=== PATIENT | female | born 1975 | race American Indian/Alaskan Native ===

== ENCOUNTER 2018-04-08 13:16 | Outpatient (CLI) | payer MEDICAID ==
[2018-04-08 13:59] LABS: Basophils % (Auto) 0.3 % (0.0-1.8); Eosinophils # (Auto) 0.1 K/mm3 (0.0-0.4); Eosinophils % (Auto) 1.2 % (0.0-4.3); Hematocrit 34.1 % (30.3-42.9); Hemoglobin 11.3 gm/dl (10.1-14.3); Lymphocytes # (Auto) 1.6 K/mm3 (1.2-5.4); Lymphocytes % (Auto) 13.3 % (13.4-35.0); Mean Corpuscular HGB Conc 33 % (30-34); Mean Corpuscular Volume 86 fl (79-97); Monocytes # (Auto) 0.9 K/mm3 (0.0-0.8); Monocytes % (Auto) 7.3 % (0.0-7.3); Platelet Count 326 K/mm3 (140-440); Red Blood Count 3.98 M/mm3 (3.65-5.03); Red Cell Distribution Width 14.7 % (13.2-15.2)
[2018-04-08 14:06] LABS: Bacteria,Urine 2+ /HPF (Negative); Bilirubin,Urine NEG (Negative); Blood,Urine NEG (Negative); Color,Urine Yellow (Yellow); Mucus,Urine 1+ /HPF; Protein,Urine <15 mg/dL mg/dL (Negative); Urobilinogen,Urine < 2.0 mg/dL (<2.0)
[2018-04-08 14:19] LABS: Alanine Aminotransferase 5 units/L (7-56); Albumin 3.1 g/dL (3.9-5); BUN/Creatinine Ratio 18; Blood Urea Nitrogen 7 mg/dL (7-17); Calcium 8.3 mg/dL (8.4-10.2); Hemolysis Index 6
--- NOTE | 2018-04-08 16:23 | Ultrasound Report ---
FINAL REPORT EXAM: US OB BPP WO NON-STRESS HISTORY: well being, mayito, and posistion COMPARISON: Biophysical profile performed on 04/02/2018 TECHNIQUE: Limited obstetric ultrasound was performed for biophysical profile score. FINDINGS: heart rate is 149 beats per minute. Biophysical profile score: breathing movement: 2 movement: 2 posterior and tone: 2 Qualitative amniotic fluid volume: 2 Total score: 8 IMPRESSION: Normal biophysical profile score of 8.
--- NOTE | 2018-04-08 16:25 | Ultrasound Report ---
FINAL REPORT EXAM: US OB LIMITED HISTORY: well being, bpp, mayito, presentation COMPARISON: Amniotic fluid index performed on 04/02/2018 TECHNIQUE: Limited obstetrical ultrasound for amniotic fluid index was performed. FINDINGS: There is a single live intrauterine in cephalic presentation. heart rate is 143 beats per minute. Amniotic fluid index is 16.5 centimeters. IMPRESSION: Amniotic fluid index of 16.5 centimeters.
== END 2018-04-08 16:58 | disposition home or self-care (01) ==
LOC: TRG 13:16
PROVIDERS: ATTEND Obstetrics & Gynecology
DX: O47.1 False labor at or after 37 completed weeks of gestation (principal); O10.013 Pre-existing essential hypertension complicating pregnancy, third trimester; Z3A.38 38 weeks gestation of pregnancy
CPT/HCPCS: 36415; 59025; 76815; 76819; 80053; 81001; 85025

== ENCOUNTER 2018-04-12 11:30 | Inpatient (IN) | payer MEDICAID ==
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
[2018-04-13] MEDS ORDERED: STADOL IV PRN (01:06)
[2018-04-13] MEDS ORDERED: PHENERGAN PO PRN (01:06)
[2018-04-13] MEDS ORDERED: MINERAL OIL PO PRN (01:06)
[2018-04-13] MEDS ORDERED: BRETHINE SUB-Q PRN (01:06)
[2018-04-13] MEDS ORDERED: XYLOCAINE 2% INFILTRATI ONE (01:06)
[2018-04-13] MEDS ORDERED: BRETHINE IVP PRN (01:06)
[2018-04-13] MEDS ORDERED: PITOCin/NS 20 UNIT/1000ML DRIP 20 UNITS/1,000 ML BAG IV SCH (02:00)
[2018-04-13 03:42] LABS: Hematocrit 34.4 % (30.3-42.9); Hemoglobin 11.2 gm/dl (10.1-14.3); Mean Corpuscular HGB Conc 33 % (30-34); Mean Corpuscular Volume 87 fl (79-97); Platelet Count 296 K/mm3 (140-440); Red Blood Count 3.96 M/mm3 (3.65-5.03)
[2018-04-13] MEDS ORDERED: PITOCin/NS 30 UNIT/500ML 30,000 MILLIUNITS/500 ML BAG IV ONE ×2 (03:58→04:04)
--- NOTE | 2018-04-13 04:05 | Ultrasound Report ---
FINAL REPORT PROCEDURE: US OB LIMITED TECHNIQUE: Real-time limited sonographic examination was performed for evaluation of size, pos ition, heartbeat, fluid volume for each fetus with image documentation (1 or more fetuses). CPT 7681 5 HISTORY: position COMPARISON: No prior studies are available for comparison. FINDINGS: Fetus is in cephalic presentation. There is a hand at the internal os. Heart rate is 125 beats per minute. IMPRESSION: Fetus is in cephalic presentation. There is a hand at the internal os. Heart rate is 125 beats per minute.
[2018-04-13] MEDS: LACTATED RINGERS 1,000 ML IV SCH ×2 (04:10→12:09)
[2018-04-13 08:14] LABS: Hematocrit 32.6 % (30.3-42.9); Hemoglobin 10.8 gm/dl (10.1-14.3)
--- NOTE | 2018-04-13 08:29 | Progress Note ---
Objective - Vital Signs Vital Signs: Vital Signs - 12hr 04/12/18 04/12/18 04/13/18 21:53 22:40 07:45 Temperature 98.6 F Pulse Rate 100 H 93 H 98 H Respiratory 16 Rate Blood Pressure 104/69 103/57 105/58 Blood Pressure 103/57 [Left] 04/13/18 04/13/18 07:47 08:14 Temperature 97.8 F Pulse Rate 91 H Respiratory 18 Rate Blood Pressure 102/67 Blood Pressure [Left] - Exam FHR: category 1 Cervical Dilatation: 1 Cervical Effacement Percentage: 50 station: -2 - Labs Labs: Abnormal Labs 04/12/18 23:33 WBC 11.5 H Laboratory Results - last 24 hr 04/12/18 04/12/18 04/13/18 23:33 23:33 07:47 WBC 11.5 H RBC 3.96 Hgb 11.2 10.8 Hct 34.4 32.6 MCV 87 MCH 28 MCHC 33 RDW 15.0 Plt Count 296 Blood Type A POSITIVE Antibody Screen Negative
--- NOTE | 2018-04-13 08:29 | Event Note ---
Date: 04/13/18 Pt seen and evaluated. Sono on admission reviewed. Cx at this time is /-2 with head palpated. No hand or arm is palpated on my exam I d/w having breakfast, pericare and proceeding with IOL. She is aware that lie has been unstable and if position changes during labor, this would result in c/s. Pt expressed understanding and questions were addressed and answered. Will having pt sign consent for c/s incase it is needed later due to unstable or change in ile. Sono ordered to compare to physician exam. Head is lower in pelvis than admission also.
--- NOTE | 2018-04-13 09:06 | Ultrasound Report ---
LIMITED OB ULTRASOUND: Presentation. Gestation: Borges Position: Cephalic Heart Rate: 128 BPM Estimated age is 39 weeks 4 days.
--- NOTE | 2018-04-13 10:46 | Event Note ---
Date: 04/13/18 Second sono confirms no hand or arm over head and is c/w my exam. Will start pitocin for IOL at this time.
[2018-04-13] MEDS ORDERED: PNEUMOVAX 23 IM ONE (12:00)
[2018-04-13] MEDS ORDERED: AFLURIA QUAD 2018-2019 SYRINGE IM ONE (12:00)
--- NOTE | 2018-04-13 17:49 | Progress Note ---
Assessment and Plan Patient resting in bed. Reports feeling "some contractions"-pain /10, declines medication or intervention. Contractions q3-5 minutes by palpation, mild, per RN. SVE /50/-2, soft, mid position, vertex. Pitocin currently on 20. Category 1 tracing. Reviewed assessment with Dr. Abad, states she will present to L&D for AROM, continue increasing pitocin as ordered. Patient and FOC as well as ABELARDO Caruso aware of plan. Subjective - Subjective Date of service: 04/13/18 Patient reports: movement normal, no new complaints Objective - Vital Signs Vital Signs: Vital Signs - 12hr 04/13/18 04/13/18 04/13/18 07:45 07:47 08:14 Temperature 97.8 F Pulse Rate 98 H 91 H Respiratory 18 Rate Blood Pressure 105/58 102/67 04/13/18 04/13/18 04/13/18 08:44 09:14 09:44 Temperature Pulse Rate 94 H 96 H 96 H Respiratory Rate Blood Pressure 102/58 105/58 101/57 04/13/18 04/13/18 04/13/18 10:14 10:44 11:15 Temperature Pulse Rate 96 H 99 H 93 H Respiratory Rate Blood Pressure 98/56 101/55 107/63 04/13/18 04/13/18 04/13/18 11:44 12:13 12:44 Temperature 97.4 F L Pulse Rate 99 H 93 H Respiratory 18 Rate Blood Pressure 116/67 102/59 04/13/18 04/13/18 04/13/18 13:14 13:44 14:14 Temperature Pulse Rate 85 93 H 92 H Respiratory Rate Blood Pressure 95/55 118/56 105/61 04/13/18 04/13/18 04/13/18 14:44 15:14 15:44 Temperature Pulse Rate 88 86 89 Respiratory Rate Blood Pressure 108/66 111/60 96/53 04/13/18 04/13/18 04/13/18 16:06 16:14 16:44 Temperature 98.8 F Pulse Rate 93 H 93 H Respiratory 18 Rate Blood Pressure 109/65 109/61 04/13/18 17:14 Temperature Pulse Rate 96 H Respiratory Rate Blood Pressure 111/60 - Exam Abdomen: Present: normal appearance, soft Vulva: both: normal Uterus: Present: normal FHR: category 1 Uterine Contraction Monitor Mode: External Cervical Dilatation: 4 Cervical Effacement Percentage: 50 station: -2 Uterine Contraction Frequency (min): 3-5 by palpation Uterine Contraction Pattern: Regular Uterine Tone Measurement Phase: Contraction Uterine Contraction Intensity: Mild Extremities: normal - Labs Labs: Abnormal Labs 04/12/18 23:33 WBC 11.5 H Laboratory Results - last 24 hr 04/12/18 04/12/18 04/12/18 23:33 23:33 23:33 WBC 11.5 H RBC 3.96 Hgb 11.2 Hct 34.4 MCV 87 MCH 28 MCHC 33 RDW 15.0 Plt Count 296 RPR Nonreactive Blood Type A POSITIVE Antibody Screen Negative 04/13/18 07:47 WBC RBC Hgb 10.8 Hct 32.6 MCV MCH MCHC RDW Plt Count RPR Blood Type Antibody Screen
--- NOTE | 2018-04-13 19:15 | Progress Note ---
Assessment and Plan - Patient Problems (1) Advanced maternal age (AMA), 40 years or greater Current Visit: Yes Status: Chronic (2) 39 weeks gestation of Current Visit: No Status: Acute (3) Active labor at term Current Visit: No Status: Acute Plan to address problem: -anticipate -vtx and head in position. no other parts are presenting -iv pain meds at this time. Subjective - Subjective Date of service: 04/13/18 Principal diagnosis: IUP at term for IOL for unstable lie now in active labor Interval history: doing well desires pain meds. declines epidural. Patient reports: movement normal, no new complaints Objective - Vital Signs Vital Signs: Vital Signs - 12hr 04/13/18 04/13/18 04/13/18 07:45 07:47 08:14 Temperature 97.8 F Pulse Rate 98 H 91 H Respiratory 18 Rate Blood Pressure 105/58 102/67 04/13/18 04/13/18 04/13/18 08:44 09:14 09:44 Temperature Pulse Rate 94 H 96 H 96 H Respiratory Rate Blood Pressure 102/58 105/58 101/57 04/13/18 04/13/18 04/13/18 10:14 10:44 11:15 Temperature Pulse Rate 96 H 99 H 93 H Respiratory Rate Blood Pressure 98/56 101/55 107/63 04/13/18 04/13/18 04/13/18 11:44 12:13 12:44 Temperature 97.4 F L Pulse Rate 99 H 93 H Respiratory 18 Rate Blood Pressure 116/67 102/59 04/13/18 04/13/18 04/13/18 13:14 13:44 14:14 Temperature Pulse Rate 85 93 H 92 H Respiratory Rate Blood Pressure 95/55 118/56 105/61 04/13/18 04/13/18 04/13/18 14:44 15:14 15:44 Temperature Pulse Rate 88 86 89 Respiratory Rate Blood Pressure 108/66 111/60 96/53 04/13/18 04/13/18 04/13/18 16:06 16:14 16:44 Temperature 98.8 F Pulse Rate 93 H 93 H Respiratory 18 Rate Blood Pressure 109/65 109/61 04/13/18 04/13/18 04/13/18 17:14 17:44 18:44 Temperature Pulse Rate 96 H 98 H 93 H Respiratory Rate Blood Pressure 111/60 107/66 113/59 - Exam FHR: category 1 Cervical Dilatation: 6.5 Cervical Effacement Percentage: 70 station: -1 Uterine Contraction Pattern: Regular Uterine Tone Measurement Phase: Resting Uterine Contraction Intensity: Moderate - Labs Labs: Abnormal Labs 04/12/18 23:33 WBC 11.5 H Laboratory Results - last 24 hr 04/12/18 04/12/18 04/12/18 23:33 23:33 23:33 WBC 11.5 H RBC 3.96 Hgb 11.2 Hct 34.4 MCV 87 MCH 28 MCHC 33 RDW 15.0 Plt Count 296 RPR Nonreactive Blood Type A POSITIVE Antibody Screen Negative 04/13/18 07:47 WBC RBC Hgb 10.8 Hct 32.6 MCV MCH MCHC RDW Plt Count RPR Blood Type Antibody Screen
--- NOTE | 2018-04-13 22:22 | Procedure Note ---
Addendum entered and electronically signed by ALDAIR RODRIGUEZ MD 04/15/18 06:32: I was present for the delivery. 2nd degree laceation repaired by myself in usual fashion under local anethesia with 3-0 vicrly. Pt tolerated the procedure well. Original Note: OB Delivery Note - Delivery Date of Delivery: 04/13/18 Statistical Modeler: AMY IVORY Estimated blood loss: 300cc - Vaginal Delivery position: OA Intrapartum events: none Delivery induction: oxytocin Delivery monitor: external FHT, external uterine Route of delivery: Delivery placenta: spontaneous Episiotomy: none Delivery laceration: 2nd degree Delivery repair: vicryl Anesthesia: intravenous - Infant A at 1 minute: 8 at 5 minutes: 9 Infant Gender: Male (6#12)
[2018-04-14] MEDS ORDERED: BENADRYL PO PRN (00:22)
[2018-04-14] MEDS ORDERED: ZOFRAN IV PRN (00:22)
[2018-04-14] MEDS ORDERED: TYLENOL PO PRN (00:22)
[2018-04-14] MEDS ORDERED: MILK OF MAGNESIA PO PRN (00:22)
[2018-04-14] MEDS ORDERED: TUCKS PAD TP PRN (00:22)
[2018-04-14] MEDS ORDERED: PHENERGAN PO PRN (00:22)
[2018-04-14] MEDS ORDERED: DULCOLAX PR PRN (00:22)
[2018-04-14] MEDS ORDERED: LANSINOH TP PRN (00:22)
[2018-04-14] MEDS ORDERED: PITOCin/NS 20 UNIT/1000ML DRIP 20 UNITS/1,000 ML BAG IV SCH (00:22)
[2018-04-14] MEDS ORDERED: SODIUM CHLORIDE FLUSH SYRINGE 10 ML IV NR (00:22)
[2018-04-14] MEDS: IBUPROFEN PO SCH ×5 (00:42→20:08)
[2018-04-14] MEDS ORDERED: BOOSTRIX IM ONE (06:00)
[2018-04-14 10:51] LABS: Hematocrit 32.2 % (30.3-42.9); Hemoglobin 10.8 gm/dl (10.1-14.3)
--- NOTE | 2018-04-14 13:49 | Progress Note ---
Assessment and Plan - Patient Problems (1) Unstable lie of fetus, antepartum Current Visit: Yes Status: Acute Qualifiers: Fetus number: single or unspecified fetus Qualified Code(s): O32.0XX0 - Maternal care for unstable lie, not applicable or unspecified (2) 39 weeks gestation of Current Visit: No Status: Acute (3) Advanced maternal age (AMA), 40 years or greater Current Visit: Yes Status: Chronic (4) Spontaneous vaginal delivery Current Visit: No Status: Acute Plan to address problem: Patient less than 24 hours doing well Subjective - Subjective Principal diagnosis: IUP at term for IOL for unstable lie now in active labor Interval history: day #1. Patient without nausea vomiting. Patient tolerating diet well Patient without fever. Infant is doing well. Will continue routine care. Patient's hematocrit is 32.2%. Patient is bottle feeding and undecided on contraceptive. Patient reports: appetite normal, voiding normally, pain well controlled, ambulating normally [place]: doing well Objective - Vital Signs Latest vital signs: Vital Signs Temp Pulse Resp BP BP Pulse Ox 04/14/18 12:36 98.7 F 82 18 95/40 04/14/18 07:44 97.3 F L 71 16 99/61 04/14/18 05:56 97.5 F L 77 16 94/64 04/14/18 05:26 18 04/14/18 00:42 18 04/14/18 00:41 98.1 F 87 18 119/68 99 04/13/18 23:47 90 100/58 04/13/18 23:32 92 H 109/58 04/13/18 23:17 98 H 121/61 04/13/18 23:02 97 H 97/59 04/13/18 22:47 101 H 112/67 04/13/18 22:28 97.5 F L 100 H 14 110/65 04/13/18 22:21 107 H 110/65 04/13/18 22:06 115 H 110/80 04/13/18 21:44 98 H 142/67 04/13/18 21:15 106 H 116/58 04/13/18 20:45 93 H 104/56 04/13/18 20:15 90 102/57 04/13/18 19:45 90 105/55 04/13/18 19:14 98 H 103/69 04/13/18 18:44 93 H 113/59 04/13/18 17:44 98 H 107/66 04/13/18 17:14 96 H 111/60 04/13/18 16:44 93 H 109/61 04/13/18 16:14 93 H 109/65 04/13/18 16:06 98.8 F 18 04/13/18 15:44 89 96/53 04/13/18 15:14 86 111/60 04/13/18 14:44 88 108/66 04/13/18 14:14 92 H 105/61 Intake and Output 04/13/18 04/14/18 04/14/18 22:59 06:59 14:59 Intake Total 71.5 240 600 Output Total 100 400 Balance -28.5 -160 600 Intake: IV 71.5 PITOCin/NS 30 UNIT/500ML 71.5 30,000 milliunits In 500 ml @ 4 MILLIUNITS/MIN 4 mls/hr IV DIRECT ONE Rx#:[id number] Oral 600 Intake, Free Water 240 Output: Urine 100 400 Void 100 400 Other: Total, Intake Amount 240 Total, Output Amount 100 400 - Exam Breasts: Present: deferred Lungs: Present: Clear to auscultation Abdomen: Present: normal appearance, soft, normal bowel sounds
[2018-04-14] MEDS ORDERED: NORCO 5/325 PO ONE (17:00)
[2018-04-15] MEDS: IBUPROFEN PO SCH ×2 (01:03→07:57)
[2018-04-15] MEDS ORDERED: BOOSTRIX IM ONE (06:00)
[2018-04-15 08:51] VITALS: BP 109/66
--- NOTE | 2018-04-15 09:39 | Progress Note ---
Assessment and Plan - Patient Problems (1) Advanced maternal age (AMA), 40 years or greater Current Visit: Yes Status: Chronic (2) 39 weeks gestation of Current Visit: No Status: Resolved (3) Active labor at term Current Visit: No Status: Resolved (4) Spontaneous vaginal delivery Current Visit: No Status: Acute Plan to address problem: -routine pp care -d/c home this pm Subjective - Subjective Date of service: 04/15/18 Principal diagnosis: PPD #2 s/p Interval history: Patient doing well. Patient desires DC home today. Patient complained of some dizziness initially with ambulation. States that this improving. Patient complains of dependent edema in bilateral extremities. But does not complain of having any calf pain or tenderness. Patient reports: appetite normal, voiding normally, pain well controlled, ambulating normally : doing well, bottle feeding Objective - Vital Signs Latest vital signs: Vital Signs Temp Pulse Resp BP 04/15/18 07:32 97.3 F L 89 18 109/66 04/15/18 01:03 18 04/15/18 00:00 98.6 F 77 18 119/64 04/14/18 20:08 18 04/14/18 16:30 97.7 F 85 18 105/71 04/14/18 12:36 98.7 F 82 18 95/40 Intake and Output 04/14/18 04/15/18 04/15/18 22:59 06:59 14:59 Intake Total 300 480 Balance 300 480 Intake: Oral 480 Intake, Free Water 300 Other: Total, Intake Amount 480 - Exam Lungs: Present: Normal air movement Abdomen: Present: normal appearance, soft. Absent: distention, tenderness, guarding Uterus: Present: normal, firm, fundal height below umbilicus. Absent: bogginess, tenderness Extremities: Present: normal, tenderness, edema (1+in ankles and feet B/L no calf tenderness)
--- NOTE | 2018-04-15 10:52 | Discharge Summary ---
Providers - Providers Date of Admission: 04/12/18 20:46 Date of discharge: 04/15/18 Attending physician: TONY FINCH Primary care physician: TONY FINCH Hospitalization Reason for admission: induction of labor Delivery: Procedure details: see delivery note Episiotomy: none Laceration: 2nd degree (perineal) Other procedures: none complications: none Discharge diagnosis: IUP at term delivered baby: male Hospital course: Patient admitted for induction of labor. Patient had induction of labor with normal vaginal delivery that was not complicated. Patient received routine care. Patient is ready for discharge home today on day #2. Condition at discharge: Good Disposition: DC-01 TO HOME OR SELFCARE - Discharge Diagnoses (1) Advanced maternal age (AMA), 40 years or greater Status: Chronic (2) 39 weeks gestation of Status: Resolved (3) Active labor at term Status: Resolved (4) Spontaneous vaginal delivery Status: Acute Plan - Provider Discharge Summary Additional instructions: [] Smoking cessation referral if applicable(refer to patient education folder for contact #) [] Refer to [facility] Booklet Call your doctor immediately for: * Fever > 100.5 * Heavy vaginal bleeding ( >1 pad per hour) * Severe persistent headache * Shortness of breath * Reddened, hot, painful area to leg or breast * Drainage or odor from incision. * Keep incision clean and dry at all times and follow doctor's instructions regarding bathing/showering . Call the office to schedule circumcision in the next 1-2 weeks. - Follow up plan Follow up: TONY FINCH MD [Primary Care Provider] - 7 Days
== END 2018-04-15 15:40 | disposition home or self-care (01) | DRG 775 ==
LOC: LD 20:46 → OB 04-14 00:21
PROVIDERS: ADMIT Obstetrics & Gynecology; ATTEND Obstetrics & Gynecology
PROC: 10E0XZZ Delivery of Products of Conception, External Approach (ICD-10-PCS; principal; 2018-04-13)
PROC: 0KQM0ZZ Repair Perineum Muscle, Open Approach (ICD-10-PCS; 2018-04-13)
PROC: 3E033VJ Introduction of Other Hormone into Peripheral Vein, Percutaneous Approach (ICD-10-PCS; 2018-04-13)
PROC: 3E0234Z Introduction of Serum, Toxoid and Vaccine into Muscle, Percutaneous Approach (ICD-10-PCS; 2018-04-15)
DX: O99.52 Diseases of the respiratory system complicating childbirth (principal); O32.0XX0 Maternal care for unstable lie, not applicable or unspecified; O70.1 Second degree perineal laceration during delivery; Z23 Encounter for immunization; J45.909 Unspecified asthma, uncomplicated; Z3A.39 39 weeks gestation of pregnancy; Z37.0 Single live birth
CPT/HCPCS: 36415; 76815; 85014; 85018; 85027; 86592; 86850; 86900; 86901; 90471; 90686; 90715; 90732; 96360; 96361; 96365; 96366; 96367; 96374; G0378; J0595; J2590; J7120